=== PATIENT | female | born 1995 | race Two or more races ===

== ENCOUNTER 2017-02-05 16:09 | Emergency (ER) | payer BC, MEDICAID ==
[~2017-02-05] VITALS: Ht 160 cm; Wt 67.6 kg
[2017-02-05] MEDS ORDERED: Dexamethasone 4mg/ml vial IM ONE (16:45)
[2017-02-05] MEDS ORDERED: Bicillin LA 1.2 Million Units Syr IM ONE (16:45)
[2017-02-05] MEDS ORDERED: Norco 5mg/325mg tab ORAL ONE (18:00)
[2017-02-05] MEDS ORDERED: Lidocaine 2% Visc 15ml soln ORAL ONE (18:00)
--- NOTE | 2017-02-05 18:12 | Emergency Room Report ---
History of Present Illness General Chief Complaint: Sore Throat Source: Patient Present Illness HPI 21 YO Female presents to the ED C/O 11/21 in severity left sided ST x 2 days with subjective fevers at home taking OTC medications. Pt. also reports left sided ear fullness x 1 day. pt. reports difficulty swallowing as this exacerbates pain. pt. reports erythema of the throat. denies cough, recent ill contacts, recent travel. denies abdominal pain, rashes, neck pain/stiffness. Denies CP, Palpitations, LOC, AMS, dizziness, Changes in Vision, Sensation, paresthesias, or a sudden severe headache. Allergies: Coded Allergies: No Known Allergies (Unverified , 02/05/17) Patient History Past Medical History: see triage record Past Surgical History: none Last Menstrual Period: 02/01/17 Now: No Immunizations: UTD Reviewed Nursing Documentation: PMH: Agreed, PSxH: Agreed Nursing Documentation-PMH Past Medical History: No Stated History Review of Systems All Other Systems: negative except mentioned in HPI Physical Exam Vital Signs Date Time Temp Pulse Resp B/P (MAP) Pulse Ox O2 Delivery O2 Flow Rate FiO2 02/05/17 16:12 99.7 107 21 125/75 97 Room Air Sp02 EP Interpretation: reviewed, normal General Appearance: alert, GCS 15, non-toxic, mild distress Head: normocephalic, atraumatic Eyes: bilateral eye normal inspection, bilateral eye PERRL ENT: hearing grossly normal, no angioedema, normal voice, TMs + canals normal, uvula midline, pharyngeal erythema, other - no unilateral swelling of the tonsillar pillars Neck: full range of motion, no meningismus, no bony tend, supple/symm/no masses , tender - left submandibular TTP, bialteral LAD, no obvious masses, no meningismus Respiratory: lungs clear, normal breath sounds, no wheezing, speaking full sentences Cardiovascular #1: regular rate, rhythm Musculoskeletal: back normal, gait/station normal, normal range of motion, non- tender Neurologic: alert, oriented x3, responsive, motor strength/tone normal, sensory intact, speech normal Skin: normal color, no rash, warm/dry, well hydrated Lymphatic: other - bilateral submandibular adenopathy Medical Decision Making PA Attestation Dr. villeda is my supervising Physician whom patient management has been discussed with. Diagnostic Impression: Primary Impression: Pharyngitis, acute Qualified Codes: J02.0 - Streptococcal pharyngitis ER Course 21 YO Female presents to the ED C/O /10 in severity left sided ST x 2 days with subjective fevers at home taking OTC medications. Pt. also reports left sided ear fullness x 1 day. pt. reports difficulty swallowing as this exacerbates pain. pt. reports erythema of the throat. denies cough, recent ill contacts, recent travel. denies abdominal pain, rashes, neck pain/stiffness. Denies CP, Palpitations, LOC, AMS, dizziness, Changes in Vision, Sensation, paresthesias, or a sudden severe headache. Ddx considered but are not limited to: pharyngitis, strep, FILM HISTORIAN, [place] angina, URI , RPA Vital signs: Tachycardic, pt. is afebrile H&PE are most consistent with: pharyngitis presumed strep. will r/o abscess due to muffled voice, no FILM HISTORIAN on PE. ORDERS: - CXR: "Prominent tonsillar tissues, cannot exclude mass or abscess.No retropharyngeal soft tissue thickening."- Per official radiology report- Please see report for specific details. ED INTERVENTIONS: -PCN G IM 2.5 IU - Decadron IM -Viscous Lidocaine 2 % PO -Cornish PO DISCHARGE: At this time pt. is stable for d/c to home. Will provide printed patient care instructions, and any necessary prescriptions. Care plan and follow up instructions have been discussed with the patient prior to discharge. Other X-Ray Diagnostic Results Other X-Ray Diagnostic Results : X-Ray ordered: Soft tissue Neck # of Views/Limited Vs Complete: 2 View Indication: Pain EP Interpretation: Yes ASHLEE Xray: Interpretation reviewed, by supervising MD Interpretation: no soft tissue swelling, other - no obvious prevertebral edema Impression: No acute disease Electronically Signed by: Annika Gonzalez PA-C Last Vital Signs Date Time Temp Pulse Resp B/P (MAP) Pulse Ox O2 Delivery O2 Flow Rate FiO2 02/05/17 16:12 99.7 107 21 125/75 97 Room Air Status: improved Disposition: HOME, SELF-CARE Condition: Stable Scripts Lidocaine HCl 2% Viscous (Lidocaine HCl 2% Viscous) 100 Ml Solution 15 ML ORAL QID, #200 ML Prov: Annika Gonzalez PPenny 02/05/17 Ibuprofen* (MOTRIN*) 600 Mg Tablet 600 MG ORAL THREE TIMES A DAY, #30 TAB 0 Refills Prov: Annika Gonzalez 02/05/17 Amoxicillin* (AMOXIL*) 500 Mg Capsule 500 MG ORAL EVERY 12 HOURS for 10 Days, #20 CAP Prov: Annika Gonzalez 02/05/17 Referrals: NOT CHOSEN IPA/MD,REFERRING (PCP) Patient Instructions: Pharyngitis Additional Instructions: Take medications as directed. Follow up with a Primary Care Provider in 3-5 days, even if your symptoms have resolved. --Please review list of primary care clinics, if you do not already have a primary care provider Return sooner to ED if new symptoms occur, or current symptoms become worse. - Please note that this Emergency Department Report was dictated using [employer] technology software, occasionally this can lead to erroneous entry secondary to interpretation by the dictation equipment. Annika Gonzalez Feb 05, 2017 18:12
[2017-02-05] MEDS ORDERED: IBUPROFEN600 MG ORAL (19:02)
[2017-02-05] MEDS ORDERED: LIDOCAINE VISC100 ML ORAL (19:02)
[2017-02-05] MEDS ORDERED: AMOXICILLIN500 MG ORAL (19:02)
[2017-02-05 19:15] VITALS: BP 106/65
--- NOTE | 2017-02-06 10:54 | Diagnostic Imaging Report ---
Indication: Neck pain Technique: Neck soft tissues 2 views Comparison: None Findings: Prevertebral soft tissues are within normal limits. Osseous structures demonstrate no acute abnormality. The epiglottis is grossly unremarkable. Airway is patent. There is questionable prominence of the peritonsillar soft tissues. Impression: Questionable prominence of the peritonsillar soft tissues. Correlation with CT recommended as indicated.
== END 2017-02-05 19:20 | disposition home or self-care (01) ==
LOC: EMR 16:28
DX: J02.9 Acute pharyngitis, unspecified (principal)
CPT/HCPCS: 70360; 96372; 99284; J0570; J1100; J0561